=== PATIENT | male | born 1980 | race Caucasian/White ===

== ENCOUNTER 2019-08-20 10:56 | Emergency (ER) | payer BC, OTHER ==
[~2019-08-20] VITALS: Ht 175.3 cm; Wt 90.0 kg
[2019-08-20 11:00] VITALS: BP 157/89
--- NOTE | 2019-08-20 11:37 | NUR ---
pt c/o sob, lungs clear 99% ra. sore throat reported by patient.
== END 2019-08-20 11:59 | disposition home or self-care (01) ==
LOC: ER 10:57
DX: R05 Cough (principal); Z20.828 Contact with and (suspected) exposure to other viral communicable diseases
CPT/HCPCS: 99281